=== PATIENT | female | born 1975 | race Two or more races ===

== ENCOUNTER 2023-05-27 10:11 | Emergency (ER) | payer OTHER ==
[~2023-05-27] VITALS: Ht 162.6 cm; Wt 90.7 kg
[2023-05-27] MEDS ORDERED: ZESTRIL40 M1 PO (11:08)
[2023-05-27] MEDS ORDERED: DILTIAZEM ER300 MG PO (11:09)
[2023-05-27] MEDS ORDERED: CARDURA XL4 MG PO (11:09)
[2023-05-27] MEDS ORDERED: ATORVASTATIN CA40 MG PO (11:09)
[2023-05-27] MEDS ORDERED: LASIX20 MG PO (11:10)
[2023-05-27 14:29] LABS: HEMATOCRIT 36.1 % (36.0-45.00); MEAN CELL VOLUME 83.9 fL (80.00-100.00); MEAN CORPUSCULAR HGB CONC 33.1 g/dl (32.0-36.0); PLATELET COUNT 221 K/uL (150-450); RED CELL DISTRIBUTION WIDTH 14.8 % (11.5-14.5)
[2023-05-27 14:30] LABS: HEMOGLOBIN 11.9 g/dL (12.0-15.00); MEAN CORPUSCULAR HEMOGLOBIN 27.6 pg (27.00-32.0)
[2023-05-27 14:59] LABS: PH,URINE 6.5 (5.0-8.0); URINE APPEARANCE Clear; URINE BILIRRUBIN Negative (NEGATIVE); URINE BLOOD Trace; URINE COLOR Yellow; URINE GLUCOSE Negative (NEGATIVE); URINE LEUKOCYTE Moderate; URINE NITRATE Negative; URINE UROBILINOGEN 0.2 E.U./dl
[2023-05-27 15:03] LABS: URINE EPITHELIAL CELLS 90.7 uL (0.0-38.8); URINE WBC 243.5 uL (0.0-23.2)
[2023-05-27 15:20] LABS: URINE BACTERIA > 9821.5 uL (0.0-1933); URINE PROTEIN 100 (NEGATIVE)
[2023-05-27 15:22] LABS: ALBUMIN 3.5 gm/dL (3.4-5.0); CALCIUM 9.8 mg/dL (8.5-10.1); CREATININE SERUM 0.72 mg/dL (0.55-1.02); GFR 85.74; PHOSPHOROUS 4.2 mg/dL (2.5-4.9); POTASSIUM 4.06 mEq/L (3.5-5.1)
== END 2023-05-27 15:45 | disposition home or self-care (01) ==
LOC: ER 10:12
PROVIDERS: General Practice
DX: N39.0 Urinary tract infection, site not specified (principal); R10.9 Unspecified abdominal pain; E11.9 Type 2 diabetes mellitus without complications; I10 Essential (primary) hypertension